=== PATIENT | female | born 1935 | race Caucasian/White ===

== ENCOUNTER 2021-08-12 15:02 | Outpatient (REF) | payer MEDICARE, SELFPAY ==
[2021-08-12 16:29] LABS: MANUAL DIFF FLAG NO
[2021-08-12 17:01] LABS: Basophils Absolute Auto 0.1 X10*3/uL (0.0-0.2); Basophils Percent Auto 0.5 % (0-2); Eosinophils Absolute Auto 0.3 X10*3/uL (0.0-0.4); Eosinophils Percent Auto 2.5 % (0-4); Hematocrit 41.2 % (37.0-47.0); Hemoglobin 13.1 g/dl (12.0-16.0); Imm Gran Abs Auto 0.05 X10*3/uL (0.00-0.03); Imm Gran Pct Auto 0.4 % (0.0-0.4); Lymphocytes Absolute Auto 2.8 X10*3/uL (1.2-4.9); Lymphocytes Percent Auto 22.6 % (20-40); Mean Corpuscular HGB Conc 31.8 g/dl (31.0-35.0); Mean Corpuscular Hemoglobin 30.5 pg (27.0-33.0); Mean Platelet Volume 10.6 fL (9.4-12.3); Monocytes Absolute Auto 1.4 X10*3/uL (0.1-1.2); Monocytes Percent Auto 11.4 % (2-11); Neutrophils Absolute Auto 7.8 x10*3/uL (2.0-8.3); Neutrophils Percent Auto 62.6 % (45-73); Platelet Count 234 X10*3/uL (160-400); Red Blood Count 4.29 X10*6/uL (4.20-5.50); Red Cell Distribution Width 14.5 % (11.0-16.0); White Blood Count 12.5 X10*3/uL (4.8-10.8)
[2021-08-12 17:13] LABS: D Dimer High Sensitivity 445 NG/ML
[2021-08-12 17:34] LABS: Anion Gap 9 (12-20); Blood Urea Nitrogen 28 mg/dL (9-16); Calcium 9.9 mg/dL (8.4-10.2); Carbon Dioxide 32 mmol/L (22-29); Chloride 109 mmol/L (96-108); Estimated Glomerular Filt Rate > 60; Glucose Random 122 mg/dL (60-115); Sodium 146 mmol/L (135-145)
[2021-08-12 17:37] LABS: Troponin-I High Sensitivity 6.5 ng/L (<3.5-17.0)
[2021-08-12 18:19] LABS: Erythrocyte Sedimentation Rate 21 MM/HR (0-20)
[2021-08-18 12:47] LABS: Alpha 1 Anti-trypsin 152 mg/dL (83-199)
[2021-09-05 08:41] LABS: SARS COV2 IgG Negative
== END 2021-08-12 15:03 | disposition home or self-care (01) ==
LOC: HO.LAB 15:02
PROVIDERS: PCP Internal Medicine; Visit Provider Hospitalist
DX: J44.9 Chronic obstructive pulmonary disease, unspecified (principal); R07.9 Chest pain, unspecified; R06.00 Dyspnea, unspecified; R09.02 Hypoxemia; T78.40XA Allergy, unspecified, initial encounter; Z01.84 Encounter for antibody response examination
CPT/HCPCS: 36415; 80048; 82103; 82785; 84484; 85025; 85379; 85652; 86003; 86769; 94618; 99202

== ENCOUNTER 2021-08-16 07:30 | Outpatient (REF) | payer MEDICARE, SELFPAY ==
--- NOTE | ~2021-08-16 | CT_ITS ---
EXAMINATION: CT ANGIOGRAM OF THE CHEST WITH AND WITHOUT CONTRAST (CT PULMONARY ANGIOGRAM FOR PE) CLINICAL INFORMATION: Reason for Exam R78.89 - Finding of other specified substances, not james... COMPARISON: None TECHNIQUE: Prior to contrast administration, noncontrast localization images were obtained. Subsequently, multidetector volumetric imaging was performed from the thoracic inlet to below the diaphragms following the administration of 65 mL Omnipaque 350 intravenous contrast. No contrast reaction reported Sagittal, coronal, and MIP oblique sagittal reformatted images were obtained on the CT workstation, uploaded to PACS, and reviewed. This CT examination was performed using dose optimization techniques as appropriate, variously including the following: *Automated exposure control *Adjustment of mA and/or kV according to patient size (this includes techniques or standardized protocols for targeted exams where dose is matched to indication/reason for exam; i.e. extremities or head) *Use of iterative reconstruction technique Total exam dose-length product 94 mGy-cm FINDINGS: QUALITY OF STUDY/CONTRAST BOLUS: Satisfactory. PULMONARY ARTERIES: No central or segmental pulmonary emboli. THORACIC AORTA: No aneurysm or dissection. LUNG: There is biapical pleural and parenchymal scarring. There are nodular opacities seen at both lung apices, left greater than right. Largest area measures 6 mm at the left lung apex. There is subsegmental atelectasis in the lingula. There is mild focal bronchiectasis and bronchial wall thickening and some bronchial soft tissue opacification in the right middle lobe. PLEURA: No pleural effusion or pneumothorax. MEDIASTINUM: There is a large right partially calcified thyroid nodule. This deviates the trachea slightly to the left. Heart size is normal. This measures at least 3 x 3 x 4 cm. There is mild coronary artery calcification. There is no pericardial effusion. The thoracic aorta is normal in caliber. There is shotty mediastinal lymphadenopathy. There are no enlarged hilar or mediastinal lymph nodes. CHEST WALL/AXILLA: No axillary or internal mammary lymphadenopathy. OSSEOUS STRUCTURES: No acute or suspicious osseous abnormality. There are degenerative changes of the spine. There is a L1 vertebral body compression fracture versus Schmorl's node. There is a sclerotic lesion in the right T10 pedicle. This measures approximately 1 cm. UPPER ABDOMEN: There are small splenules seen in the left upper quadrant. Normal-sized spleen is not seen. This uncertain whether this is posttraumatic or post splenectomy changes versus congenital finding. There are left renal cysts. No reflux of contrast into the hepatic veins to suggest elevated right heart pressures. CT/CT angio chest PE protocol IMPRESSION: No evidence of pulmonary embolism. Biapical pleural and parenchymal scarring. Bilateral apical nodular opacities. These are clustered may represent an infectious or inflammatory process. Mild airways disease in the right middle lobe. Subsegmental atelectasis or scarring in the inferior segment of the lingula. Enlarged right lobe of the thyroid gland and large right thyroid nodule that is partially calcified. According to size criteria, follow-up thyroid ultrasound recommended. VTE: negative
[2021-08-16] MEDS: iohexoL 350 MG/ML 100 ML INFUS..BTL IV (08:30)
== END 2021-08-16 07:31 | disposition home or self-care (01) ==
LOC: HO.CT 07:30
PROVIDERS: PCP Internal Medicine; Visit Provider Hospitalist
DX: R07.9 Chest pain, unspecified (principal); R09.02 Hypoxemia; R79.89 Other specified abnormal findings of blood chemistry
CPT/HCPCS: 71275; Q9967

== ENCOUNTER → 2021-09-23 12:40 | Outpatient (BNVA) | payer MEDICARE, SELFPAY | PROVIDERS: PCP Internal Medicine; Visit Provider Hospitalist | DX: R06.00 Dyspnea, unspecified (principal); R09.02 Hypoxemia; J44.9 Chronic obstructive pulmonary disease, unspecified; T78.40XA Allergy, unspecified, initial encounter; R91.8 Other nonspecific abnormal finding of lung field; Z79.899 Other long term (current) drug therapy | CPT/HCPCS: 99212 ==

== ENCOUNTER → 2022-01-26 12:48 | Outpatient (BNVA) | payer MEDICARE, SELFPAY | PROVIDERS: PCP Internal Medicine; Visit Provider Hospitalist | DX: R06.00 Dyspnea, unspecified (principal); R07.9 Chest pain, unspecified; T78.40XA Allergy, unspecified, initial encounter; R09.02 Hypoxemia; J44.9 Chronic obstructive pulmonary disease, unspecified; R91.8 Other nonspecific abnormal finding of lung field; G47.33 Obstructive sleep apnea (adult) (pediatric); Z99.81 Dependence on supplemental oxygen | CPT/HCPCS: 99212 ==

== ENCOUNTER → 2022-08-15 13:05 | Outpatient (BNVA) | payer MEDICARE, SELFPAY | PROVIDERS: PCP Student in an Organized Health Care Education/Training Program; Visit Provider Hospitalist | DX: J44.9 Chronic obstructive pulmonary disease, unspecified (principal); R09.02 Hypoxemia; R06.00 Dyspnea, unspecified; R91.8 Other nonspecific abnormal finding of lung field; G47.33 Obstructive sleep apnea (adult) (pediatric) | CPT/HCPCS: 99212 ==

== ENCOUNTER 2022-11-23 12:58 | Outpatient (AMB) | payer MEDICARE, SELFPAY ==
--- NOTE | 2022-11-23 13:03 | MHC.OFFVIS ---
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 Initially she also had issues with daytime drowsiness with an elevated Vienna score. She was referred to sleep medicine. She underwent a home sleep study demonstrating sleep apnea and also nocturnal hypoxia and ultimately underwent a titration study and was started on CPAP therapy along with oxygen. However she could not tolerate the CPAP and ultimately ended up continue to use the oxygen. She was then referred to Pulmonary. There she did have a 6 minute walk test and she indeed also had evidence of hypoxia with activity. She was started on oxygen with activity as well as nighttime. She did undergo pulmonary function studies which I personally reviewed with her which demonstrated an obstructive ventilatory defect consistent moderate COPD as well as a mild diffusion impairment. Still, the degree of hypoxia was out of proportion to the abnormal pulmonary function studies. Patient did undergo an echocardiogram looking for the possibility of pulmonary hypertension. However, the echocardiogram could not visualize the tricuspid valve well and could not estimate pulmonary pressures. that being said on the echocardiogram the right ventricular function and size appear to be noted. She also underwent a chest x-ray demonstrating hyperinflation of the lungs consistent with COPD. In addition to this the patient states that she was evaluated in the past for pulmonary nodules. At that time she did undergo a CT scan of the chest and ultimately a PET scan. After as brief follow-up the patient opted on not continuing to have further CT scans. During the office visit we did go for 6 minutes walk test the patient indeed desaturated down to 87% with activity and did require 2 L of oxygen. Will have her undergo blood work including a D-dimer to rule out thromboembolic disease. 09/23/2021 the patient is here for a pulmonary follow-up visit. She continues to have dyspnea on exertion. Moderate severity. She did undergo a CT scan of the chest in view of her positive D-dimer. We personally reviewed the CT scan together. No evidence of any pulmonary emboli. She does have nodular densities in addition to some chronic airway disease. She also has areas of atelectasis and scarring. Her pulmonary trunk appears to be reasonable in size. Currently she is using the oxygen although she does not like to use the oxygen. She is wondering about a portable oxygen concentrator. I did explain to her that that is a good option but that does not not take away the need for the concentrator for sleep. She is concerned about visiting family in traveling. explained to the patient that she can always call the company and they will deliver oxygen equipment to her vacation her family location. She is wondering if she has underlying COPD. We did review her pulmonary function studies that she had a [facility] confirming that she does have moderate COPD. Although, she does not have any significant emphysema on CT scan she has evidence of airways disease. 01/26/2022 the patient is here for a pulmonary follow-up visit. Overall she is doing well from a respiratory status. Pulmonary rehabilitation was very helpful. She has now completed it. She continues on her respiratory medications with good response. She also continues use the oxygen at nighttime at 3 L. This has been affecting beneficial. Sometimes she struggles with the fact that she needs to Use the oxygen. But she understands this is very helpful in beneficial for her. More recently she had an episode of aphasia while on the phone with a friend. By the time on her friend made to home his symptoms have subsided. Therefore she did not go to the emergency department. She did go to her primary care doctor. 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 This is all per report. She is now waiting her carotid Dopplers to be done. she is currently taking an aspirin. Overall she is doing well she has not had any more episodes. She will be following up with Neurology some. The patient does have a history of sleep apnea. She could not tolerate her CPAP. The oxygen is partially helpful. She is wondering about a mandibular device. I am in favor of a mandibular device although the patient likely will need a repeat sleep study in order to get it covered by insurance as she has failed CPAP. She can also consider an elastic mandibular device which to less expensive. She will continue with current respiratory regimen for now. 08/15/2022 the patient is here for a pulmonary follow-up visit. The patient feels fatigued and also complains of shortness of breath. [id number] severity. Also has a chronic cough. She did have a repeat CT scan of the chest that we personally reviewed. It appears that she has new nodular changes in areas of bronchiolitis typically in the upper lung zones and also in the mid lung zones. I personally reviewed the CT scan with her. Explained to her that some of the nodules are indeed new in appears to be progressive. Indeed this could be explained by smoldering infectious process just says non tuberculosis mycobacterial infections. The patient was given different options. One option would be to request sputum for AFB in culture. However this is difficult for her. The other option is to perform a bronchoscopy for deep cultures. The patient would like to hold off on any semi invasive or invasive procedures in view of her age in her elements. The other option is to try empiric macrolide therapy to treat her for mycobacterial disease. The patient is agreeable to this. She knows she needs to get an EKG once she starts therapy to make sure that it QT intervals okay. I did give her a request for an EKG. The patient will continue with current respiratory therapy. She is still using the oxygen to sleep. Will plan to follow-up in 3 months time to assess her symptoms. Will also have to repeat her CT scan to see if there is any interval improvement. Also to note the dose of the azithromycin is low so will continue to monitor her response to low-dose. May be that we need to increase the dose to a more therapeutic dose. 11/23/2022 the patient is here for pulmonary follow-up visit. She denies any significant coughing or chest congestion. Her major complaint is feeling tired and short of breath. [id number]-hg-gqggfxms severity. Based on the CT scan findings we opted on putting her on azithromycin 250 mg 3 times a week. This is because the findings on the CT scan are very suspicious for smoldering infection such as mycobacterium avium. The patient had been reluctant to get a bronchoscopy and she is not providing any sputum. Therefore, we decided to treat her empirically. We did recently repeat the CT scan of the chest demonstrating interval improvement in some of the pulmonary nodules and stability on the other findings. Again the findings are very suspicious for mycobacterial disease. In view of the improvement in the fact that he EKG was okay we can try increasing the azithromycin to the therapeutic dose of 500 mg Sunday. Will continue to follow her clinically and see if her symptoms improve. She is aware that smoldering infection such as with mycobacterial disease can results with the constitutional symptoms she is experiencing. The still, it is difficult to know for sure without a culture or deep cultures to determine the infectious process. The patient understands and is agreeable to continue empiric therapy based on the fact that she does not want any invasive her semi invasive procedures at this time. If she changes her mind we can always schedule for bronchoscopy. In the meantime I did send her medications the pharmacy. She also struggles with her [place]. The patient is willing to try trazodone that she can take along with her other medications. She will start with 1 tablet and then increase it accordingly to 2 tablets if needed. The patient will follow-up in 3-4 months. [facility] Medical History (Updated 01/26/22 @ 20:55 by Renaldo Pearson MD) Allergies Asthma-COPD overlap syndrome Chest pain Dyspnea Hypoxia MARISELA (obstructive sleep apnea) Pulmonary nodules Social History (Updated 08/12/21 @ 15:11 by URBAN Correa) Patient Tobacco Use Status: Never used Tobacco Review of Systems Const Denies daytime sleepiness, Reports fatigue and Reports snoring Eyes Denies change in vision ENT Denies change in voice Card Denies chest pain and Reports dyspnea on exertion Resp Reports cough, Reports dyspnea on exertion, Reports snoring and Denies wheezing GI Reports no additional complaints Musc Reports myalgias Skin/Breast Denies rash Neuro Reports as per HPI Endo Reports fatigue Aller/Immun Denies wheezing Physical Exam Vital Signs: Last Vital Signs Pulse 84 11/23/22 13:05 BP 128/70 11/23/22 13:05 Pulse Ox 96 11/23/22 13:05 Oxygen Delivery Method Room Air 11/23/22 13:05 BMI result Body Mass Index 25.7 Const General: alert Neck Neck: Yes normal visual inspection, Yes full ROM and Yes no lymphadenopathy Chest Chest palpation & inspection: normal inspection of the chest Resp Auscultation: diminished lung sounds Cardio Rate: regular rate Rhythm: regular rhythm Heart sounds: S1 normal heart sound present and S2 normal heart sound present GI Palpation (GI): Soft to palpation and nontender Auscultation: normal bowel sounds Skin General skin exam: rashes and/or lesions noted Assessment & Plan Assessment & Plan (1) Asthma-COPD overlap syndrome: Code(s): J44.9 - Chronic obstructive pulmonary disease, unspecified (2) Hypoxia: Code(s): R09.02 - Hypoxemia (3) Allergies: Code(s): T78.40XA - Allergy, unspecified, initial encounter (4) Dyspnea: Code(s): R06.00 - Dyspnea, unspecified (5) Pulmonary nodules: Code(s): R91.8 - Other nonspecific abnormal finding of lung field (6) MARISELA (obstructive sleep apnea): Code(s): G47.33 - Obstructive sleep apnea (adult) (pediatric) Plan continue Trelegy RED as needed Continue oxygen supplementation with activity and sleep increase Azithromycin 500mg MWF EKG start Trazodone F/U 3-4 months Medications: New trazodone 50 mg PO BEDTIME 30 days 30 tabs 11RF azithromycin M/W/F 500 mg PO 3XW 28 days 12 tabs 4RF Coding Level of Care Code Est Pt Level 4 (86331) Diagnoses Asthma-COPD overlap syndrome J44.9 Hypoxia R09.02 Allergies T78.40XA Dyspnea R06.00 Pulmonary nodules R91.8 MARISELA (obstructive sleep apnea) G47.33 Time Spent (min) 20
[2022-11-23 13:05] VITALS: BP 128/70; PULSE 84; O2SAT 96; BMI 25.7
== END 2022-11-23 13:34 | disposition home or self-care (01) ==
PROVIDERS: PCP Student in an Organized Health Care Education/Training Program; Visit Provider Hospitalist
DX: J44.9 Chronic obstructive pulmonary disease, unspecified (principal); R09.02 Hypoxemia; T78.40XA Allergy, unspecified, initial encounter; R06.00 Dyspnea, unspecified; R91.8 Other nonspecific abnormal finding of lung field; G47.33 Obstructive sleep apnea (adult) (pediatric)
CPT/HCPCS: 99214

== ENCOUNTER → 2022-11-23 12:58 | Outpatient (BNVA) | payer MEDICARE, SELFPAY | PROVIDERS: PCP Student in an Organized Health Care Education/Training Program; Visit Provider Hospitalist | DX: J44.9 Chronic obstructive pulmonary disease, unspecified (principal); R09.02 Hypoxemia; T78.40XA Allergy, unspecified, initial encounter; R06.00 Dyspnea, unspecified; R91.8 Other nonspecific abnormal finding of lung field; G47.33 Obstructive sleep apnea (adult) (pediatric); Z79.899 Other long term (current) drug therapy; Z99.81 Dependence on supplemental oxygen | CPT/HCPCS: 99212 ==

== ENCOUNTER 2023-03-23 12:58 | Outpatient (AMB) | payer MEDICARE, SELFPAY ==
[2023-03-23 13:04] VITALS: PULSE 89; O2SAT 93
--- NOTE | 2023-03-23 13:04 | MHC.OFFVIS ---
Intake Vital Signs 03/23/23 13:04 Height 5 ft 4 in BMI Reason not done Patient refused/unable Pulse 89 Pulse Source Pulse Oximeter Pulse Oximetry (%) 93 Oxygen Delivery Method Room Air Intake Visit Reasons: CT Chest Follow Up Christian Counselor Required: No Allergies Iodinated Contrast Media Adverse Reaction (Verified 03/23/23 13:06) Unknown losartan Adverse Reaction (Verified 03/23/23 13:06) Unknown Penicillins Adverse Reaction (Verified 03/23/23 13:06) Unknown Sulfa (Sulfonamide Antibiotics) Adverse Reaction (Verified 03/23/23 13:06) Unknown valsartan Adverse Reaction (Verified 03/23/23 13:06) Unknown HPI HPI Comments History of Present Illness Details The patient is an 87-year woman complaining of progressive dyspnea. Initially she also had issues with daytime drowsiness with an elevated [place] score. She was referred to sleep medicine. She underwent a home sleep study demonstrating sleep apnea and also nocturnal hypoxia and ultimately underwent a titration study and was started on CPAP therapy along with oxygen. However she could not tolerate the CPAP and ultimately ended up continue to use the oxygen. She was then referred to Pulmonary. There she did have a 6 minute walk test and she indeed also had evidence of hypoxia with activity. She was started on oxygen with activity as well as nighttime. She did undergo pulmonary function studies which I personally reviewed with her which demonstrated an obstructive ventilatory defect consistent moderate COPD as well as a mild diffusion impairment. Still, the degree of hypoxia was out of proportion to the abnormal pulmonary function studies. Patient did undergo an echocardiogram looking for the possibility of pulmonary hypertension. However, the echocardiogram could not visualize the tricuspid valve well and could not estimate pulmonary pressures. that being said on the echocardiogram the right ventricular function and size appear to be noted. She also underwent a chest x-ray demonstrating hyperinflation of the lungs consistent with COPD. In addition to this the patient states that she was evaluated in the past for pulmonary nodules. At that time she did undergo a CT scan of the chest and ultimately a PET scan. After as brief follow-up the patient opted on not continuing to have further CT scans. During the office visit we did go for 6 minutes walk test the patient indeed desaturated down to 87% with activity and did require 2 L of oxygen. Will have her undergo blood work including a D-dimer to rule out thromboembolic disease. 09/23/2021 the patient is here for a pulmonary follow-up visit. She continues to have dyspnea on exertion. Moderate severity. She did undergo a CT scan of the chest in view of her positive D-dimer. We personally reviewed the CT scan together. No evidence of any pulmonary emboli. She does have nodular densities in addition to some chronic airway disease. She also has areas of atelectasis and scarring. Her pulmonary trunk appears to be reasonable in size. Currently she is using the oxygen although she does not like to use the oxygen. She is wondering about a portable oxygen concentrator. I did explain to her that that is a good option but that does not not take away the need for the concentrator for sleep. She is concerned about visiting family in traveling. explained to the patient that she can always call the company and they will deliver oxygen equipment to her vacation her family location. She is wondering if she has underlying COPD. We did review her pulmonary function studies that she had a [facility] confirming that she does have moderate COPD. Although, she does not have any significant emphysema on CT scan she has evidence of airways disease. 01/26/2022 the patient is here for a pulmonary follow-up visit. Overall she is doing well from a respiratory status. Pulmonary rehabilitation was very helpful. She has now completed it. She continues on her respiratory medications with good response. She also continues use the oxygen at nighttime at 3 L. This has been affecting beneficial. Sometimes she struggles with the fact that she needs to Use the oxygen. But she understands this is very helpful in beneficial for her. More recently she had an episode of aphasia while on the phone with a friend. By the time on her friend made to home his symptoms have subsided. Therefore she did not go to the emergency department. She did go to her primary care doctor. 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 This is all per report. She is now waiting her carotid Dopplers to be done. she is currently taking an aspirin. Overall she is doing well she has not had any more episodes. She will be following up with Neurology some. The patient does have a history of sleep apnea. She could not tolerate her CPAP. The oxygen is partially helpful. She is wondering about a mandibular device. I am in favor of a mandibular device although the patient likely will need a repeat sleep study in order to get it covered by insurance as she has failed CPAP. She can also consider an elastic mandibular device which to less expensive. She will continue with current respiratory regimen for now. 08/15/2022 the patient is here for a pulmonary follow-up visit. The patient feels fatigued and also complains of shortness of breath. Egsy-ju-dtzapcef severity. Also has a chronic cough. She did have a repeat CT scan of the chest that we personally reviewed. It appears that she has new nodular changes in areas of bronchiolitis typically in the upper lung zones and also in the mid lung zones. I personally reviewed the CT scan with her. Explained to her that some of the nodules are indeed new in appears to be progressive. Indeed this could be explained by smoldering infectious process just says non tuberculosis mycobacterial infections. The patient was given different options. One option would be to request sputum for AFB in culture. However this is difficult for her. The other option is to perform a bronchoscopy for deep cultures. The patient would like to hold off on any semi invasive or invasive procedures in view of her age in her elements. The other option is to try empiric macrolide therapy to treat her for mycobacterial disease. The patient is agreeable to this. She knows she needs to get an EKG once she starts therapy to make sure that it QT intervals okay. I did give her a request for an EKG. The patient will continue with current respiratory therapy. She is still using the oxygen to sleep. Will plan to follow-up in 3 months time to assess her symptoms. Will also have to repeat her CT scan to see if there is any interval improvement. Also to note the dose of the azithromycin is low so will continue to monitor her response to low-dose. May be that we need to increase the dose to a more therapeutic dose. 11/23/2022 the patient is here for pulmonary follow-up visit. She denies any significant coughing or chest congestion. Her major complaint is feeling tired and short of breath. Wqgk-mx-cwaswncp severity. Based on the CT scan findings we opted on putting her on azithromycin 250 mg 3 times a week. This is because the findings on the CT scan are very suspicious for smoldering infection such as mycobacterium avium. The patient had been reluctant to get a bronchoscopy and she is not providing any sputum. Therefore, we decided to treat her empirically. We did recently repeat the CT scan of the chest demonstrating interval improvement in some of the pulmonary nodules and stability on the other findings. Again the findings are very suspicious for mycobacterial disease. In view of the improvement in the fact that he EKG was okay we can try increasing the azithromycin to the therapeutic dose of 500 mg Sunday. Will continue to follow her clinically and see if her symptoms improve. She is aware that smoldering infection such as with mycobacterial disease can results with the constitutional symptoms she is experiencing. The still, it is difficult to know for sure without a culture or deep cultures to determine the infectious process. The patient understands and is agreeable to continue empiric therapy based on the fact that she does not want any invasive her semi invasive procedures at this time. If she changes her mind we can always schedule for bronchoscopy. In the meantime I did send her medications the pharmacy. She also struggles with her [place]. The patient is willing to try trazodone that she can take along with her other medications. She will start with 1 tablet and then increase it accordingly to 2 tablets if needed. The patient will follow-up in 3-4 months. 03/23/2023 the patient is here for pulmonary follow-up visit. Her major complaint is feeling tired and short of breath. Vakq-dk-voihupof severity. Based on the CT scan findings we increased her azithromycin 500 mg 3 times a week. This is because the findings on the CT scan are very suspicious for smoldering infection such as mycobacterium avium. The patient had been reluctant to get a bronchoscopy and she is not providing any sputum. Therefore, we decided to treat her empirically. We did recently repeat the CT scan of the chest demonstrating interval improvement in some of the pulmonary nodules and stability on the other findings. Again the findings are very suspicious for mycobacterial disease. Will continue to follow her clinically and see if her symptoms improve. She is aware that smoldering infection such as with mycobacterial disease can results with the constitutional symptoms she is experiencing. The still, it is difficult to know for sure without a culture or deep cultures to determine the infectious process. The patient understands and is agreeable to continue empiric therapy based on the fact that she does not want any invasive her semi invasive procedures at this time. She has been using the Trelegy, although, it is very expensive. We will trial her on Airduo with the Superbly card. We will f/u after her repeat CT chest in 3-[address] [facility] Medical History (Updated 03/23/23 @ 13:22 by Renaldo Pearson MD) MARISELA (obstructive sleep apnea) Pulmonary nodules Asthma-COPD overlap syndrome Hypoxia Allergies Chest pain Dyspnea Social History (Updated 08/12/21 @ 15:11 by Kia Murphy Louise) Patient Tobacco Use Status: Never used Tobacco Review of Systems Const Denies daytime sleepiness, Reports fatigue and Reports snoring Eyes Denies change in vision ENT Denies change in voice Card Denies chest pain and Reports dyspnea on exertion Resp Reports cough, Reports dyspnea on exertion, Reports snoring and Denies wheezing GI Reports no additional complaints Musc Reports myalgias Skin/Breast Denies rash Neuro Reports as per HPI Endo Reports fatigue Aller/Immun Denies wheezing Physical Exam Vital Signs: Last Vital Signs Pulse 89 03/23/23 13:04 Pulse Ox 93 03/23/23 13:04 Oxygen Delivery Method Room Air 03/23/23 13:04 Const General: alert Neck Neck: Yes normal visual inspection, Yes full ROM and Yes no lymphadenopathy Chest Chest palpation & inspection: normal inspection of the chest Resp Auscultation: diminished lung sounds Cardio Rate: regular rate Rhythm: regular rhythm Heart sounds: S1 normal heart sound present and S2 normal heart sound present GI Palpation (GI): Soft to palpation and nontender Auscultation: normal bowel sounds Skin General skin exam: rashes and/or lesions noted Assessment & Plan Assessment & Plan (1) Asthma-COPD overlap syndrome: Code(s): J44.9 - Chronic obstructive pulmonary disease, unspecified (2) Hypoxia: Code(s): R09.02 - Hypoxemia (3) Allergies: Code(s): T78.40XA - Allergy, unspecified, initial encounter Qualifiers: Encounter type: sequela Qualified Code(s): T78.40XS - Allergy, unspecified, sequela (4) Dyspnea: Code(s): R06.00 - Dyspnea, unspecified Qualifiers: Dyspnea type: dyspnea on exertion Qualified Code(s): R06.09 - Other forms of dyspnea (5) Pulmonary nodules: Code(s): R91.8 - Other nonspecific abnormal finding of lung field (6) MARISELA (obstructive sleep apnea): Code(s): G47.33 - Obstructive sleep apnea (adult) (pediatric) Plan stop Trelegy start Airduo (GoodRx) Lasix x 3 days RED as needed Continue oxygen supplementation with activity and sleep continue Azithromycin 500mg MWF stopped Trazodone F/U 3-4 months Orders: Orders CT chest wo IV con 3 Months R91.8 - Other nonspecific abnormal finding of lung field Medications: New furosemide (Lasix) 20 mg PO DAILY 3 days 3 tabs 0RF fluticasone propion-salmeterol 113-14 mcg/actuation (AirDuo RespiClick) 1 inh inhalation BID 1 ea 12RF fluticasone propion-salmeterol 113-14 mcg/actuation (AirDuo RespiClick) 1 inh inhalation BID 30 days 1 ea 12RF fluticasone propion-salmeterol 113-14 mcg/actuation (AirDuo RespiClick) 1 inh inhalation BID 30 days 1 ea 12RF Coding Level of Care Code Est Pt Level 4 (47350) Diagnoses Asthma-COPD overlap syndrome J44.9 Hypoxia R09.02 Allergy, sequela T78.40XS Encounter type: sequela Dyspnea on exertion R06.09 Dyspnea type: dyspnea on exertion Pulmonary nodules R91.8 MARISELA (obstructive sleep apnea) G47.33 Time Spent (min) 19
== END 2023-03-23 13:42 | disposition home or self-care (01) ==
PROVIDERS: PCP Student in an Organized Health Care Education/Training Program; Visit Provider Hospitalist
DX: J44.9 Chronic obstructive pulmonary disease, unspecified (principal); R09.02 Hypoxemia; T78.40XS Allergy, unspecified, sequela; R06.09 Other forms of dyspnea; R91.8 Other nonspecific abnormal finding of lung field; G47.33 Obstructive sleep apnea (adult) (pediatric)
CPT/HCPCS: 99214

== ENCOUNTER → 2023-03-23 12:58 | Outpatient (BNVA) | payer MEDICARE, SELFPAY | PROVIDERS: PCP Student in an Organized Health Care Education/Training Program; Visit Provider Hospitalist | DX: J44.9 Chronic obstructive pulmonary disease, unspecified (principal); R09.02 Hypoxemia; T78.40XS Allergy, unspecified, sequela; R06.09 Other forms of dyspnea; R91.8 Other nonspecific abnormal finding of lung field; G47.33 Obstructive sleep apnea (adult) (pediatric) | CPT/HCPCS: 99212 ==

== ENCOUNTER 2023-07-02 13:02 | Outpatient (AMB) | payer MEDICARE, SELFPAY ==
[2023-07-02 13:15] VITALS: PULSE 72; O2SAT 94; BMI 25.7
--- NOTE | 2023-07-02 13:15 | A.OFFVIS_ITS ---
Intake Vital Signs 07/02/23 13:15 Height 5 ft 4 in Weight 149 lb 14.629 oz BMI 25.7 Pulse 72 Pulse Source Pulse Oximeter Pulse Oximetry (%) 94 Oxygen Delivery Method Room Air Intake Visit Reasons: CT Chest Follow Up [employer] Development Head Required: No Allergies Iodinated Contrast Media Adverse Reaction (Verified 07/02/23 13:16) Unknown losartan Adverse Reaction (Verified 07/02/23 13:16) Unknown Penicillins Adverse Reaction (Verified 07/02/23 13:16) Unknown Sulfa (Sulfonamide Antibiotics) Adverse Reaction (Verified 07/02/23 13:16) Unknown valsartan Adverse Reaction (Verified 07/02/23 13:16) Unknown HPI HPI Comments History of Present Illness Details The patient is an 88-year woman complaining of progressive dyspnea. Initially she also had issues with daytime drowsiness with an elevated Lagrange score. She was referred to sleep medicine. She underwent a home sleep study demonstrating sleep apnea and also nocturnal hypoxia and ultimately underwent a titration study and was started on CPAP therapy along with oxygen. However she could not tolerate the CPAP and ultimately ended up continue to use the oxygen. She was then referred to Pulmonary. There she did have a 6 minute walk test and she indeed also had evidence of hypoxia with activity. She was started on oxygen with activity as well as nighttime. She did undergo pulmonary function studies which I personally reviewed with her which demonstrated an obstructive ventilatory defect consistent moderate COPD as well as a mild diffusion impairment. Still, the degree of hypoxia was out of proportion to the abnormal pulmonary function studies. Patient did undergo an echocardiogram looking for the possibility of pulmonary hypertension. However, the echocardiogram could not visualize the tricuspid valve well and could not estimate pulmonary pressures. that being said on the echocardiogram the right ventricular function and size appear to be noted. She also underwent a chest x-ray demonstrating hyperinflation of the lungs consistent with COPD. In addition to this the patient states that she was evaluated in the past for pulmonary nodules. At that time she did undergo a CT scan of the chest and ultimately a PET scan. After as brief follow-up the patient opted on not continuing to have further CT scans. During the office visit we did go for 6 minutes walk test the patient indeed desaturated down to 87% with activity and did require 2 L of oxygen. Will have her undergo blood work including a D-dimer to rule out thromboembolic disease. 09/23/2021 the patient is here for a pulmo nary follow-up visit. She continues to have dyspnea on exertion. Moderate severity. She did undergo a CT scan of the chest in view of her positive D-dimer. We personally reviewed the CT scan together. No evidence of any pulmonary emboli. She does have nodular densities in addition to some chronic airway disease. She also has areas of atelectasis and scarring. Her pulmonary trunk appears to be reasonable in size. Currently she is using the oxygen although she does not like to use the oxygen. She is wo ndering about a portable oxygen concentrator. I did explain to her that that is a good option but that does not not take away the need for the concentrator for sleep. She is concerned about visiting family in traveling. explained to the patient that she can always call the company and they will deliver oxygen equipment to her vacation her family location. She is wondering if she has underlying COPD. We did review her pulmonary function studies that she had a [facility] confirming that she does have moderate COPD. Although, she does not have any significant emphysema on CT scan she has evidence of airways disease. 01/26/2022 the patient is here for a pulmonary follow-up visit. Overall she is doing well from a respiratory status. Pulmonary rehabilitation was very helpful. She has now completed it. She continues on her respiratory medications with good response. She also continues use the oxygen at nighttime at 3 L. This has been affecting beneficial. Sometimes she struggles with the fact that she needs to Use the oxygen. But she understands this is very helpful in beneficial for her. More recently she had an episode of aphasia while on the phone with a friend. By the time on her friend made to home his symptoms have subsided. Therefore she did not go to the emergency department. She did go to her primary care doctor. 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 This is all per report. She is now waiting her carotid Dopplers to be done. she is currently taking an aspirin. Overall she is doing well she has not had any more episodes. She will be following up with Neurology some. The patient does have a history of sleep apnea. She could not tolerate her CPAP. The oxygen is partially helpful. She is wondering about a mandibular device. I am in favor of a mandibular device although the patient likely will need a repeat sleep study in order to get it covered by insurance as she has failed CPAP. She can also consider an elastic mandibular device which to less expensive. She will continue with current respiratory regimen for now. 08/15/2022 the patient is here for a pulmonary follow-up visit. The patient feels fatigued and also complains of shortness of breath. Kqmd-zg-djzynual severity. Also has a chronic cough. She did have a repeat CT scan of the chest that we personally reviewed. It appears that she has new nodular changes in areas of bronchiolitis typically in the upper lung zones and also in the mid lung zones. I personally reviewed the CT scan with her. Explained to her that some of the nodules are indeed new in appears to be progressive. Indeed this could be explained by smoldering infectious process just says non tuberculosis mycobacterial infections. The patient was given different options. One option would be to request sputum for AFB in culture. However this is difficult for her. The other option is to perform a bronchoscopy for deep cultures. The patient would like to hold off on any semi invasive or invasive procedures in view of her age in her elements. The other option is to try empiric macrolide therapy to treat her for mycobacterial disease. The patient is agreeable to this. She knows she needs to get an EKG once she starts therapy to make sure that it QT intervals okay. I did give her a request for an EKG. The patient will continue with current respiratory therapy. She is still using the oxygen to sleep. Will plan to follow-up in 3 months time to assess her symptoms. Will also have to repeat her CT scan to see if there is any interval improvement. Also to note the dose of the azithromycin is low so will continue to monitor her response to low-dose. May be that we need to increase the dose to a more therapeutic dose. 11/23/2022 the patient is here for pulmonary follow-up visit. She denies any significant coughing or chest congestion. Her major complaint is feeling tired and short of breath. Tico-hi-ouyaklxz severity. Based on the CT scan findings we opted on putting her on azithromycin 250 mg 3 times a week. This is because the findings on the CT scan are very suspicious for smoldering infection such as mycobacterium avium. The patient had been reluctant to get a bronchoscopy and she is not providing any sputum. Therefore, we decided to treat her empirically. We did recently repeat the CT scan of the chest demonstrating inte rval improvement in some of the pulmonary nodules and stability on the other findings. Again the findings are very suspicious for mycobacterial disease. In view of the improvement in the fact that he EKG was okay we can try increasing the azithromycin to the therapeutic dose of 500 mg Sunday. Will continue to follow her clinically and see if her symptoms improve. She is aware that smoldering infection such as with mycobacterial disease can results with the constitutional symptoms she is experiencing. The still, it is difficult to know for sure without a culture or deep cultures to determine the infectious process. The patient understands and is agreeable to continue empiric therapy based on the fact that she does not want any invasive her semi invasive procedures at this time. If she changes her mind we can always schedule for bronchoscopy. In the meantime I did send her medications the pharmacy. She also struggles with her [place]. The patient is willing to try trazodone that she can take along with her other medications. She will start with 1 tablet and then increase it accordingly to 2 tablets if needed. The patient will follow-up in 3-4 months. 03/23/2023 the patient is here for pulm onary follow-up visit. Her major complaint is feeling tired and short of breath. Eyoe-ql-bzgaqkkj severity. Based on the CT scan findings we increased her azithromycin 500 mg 3 times a week. This is because the findings on the CT scan are very suspicious for smoldering infection such as mycobacterium avium. The patient had been reluctant to get a bronchoscopy and she is not providing any sputum. Therefore, we decided to treat her empirically. We did recently repeat the CT scan of the chest demonstrating interval improvement in some of the pulmonary nodules and stability on the other findings. Again the findings are very suspicious for mycobacterial disease. Will continue to follow her clinically and see if her symptoms improve. She is aware that smoldering infection such as with mycobacterial disease can results with the constitutional symptoms she is experiencing. The still, it is difficult to know for sure without a culture or deep cultures to determine the infectious process. The patient understands and is agreeable to continue empiric therapy based on the fact that she does not want any invasive her semi invasive procedures at this time. She has been using the Trelegy, although, it is very expensive. We will trial her on Airduo with the goodRx card. We will f/u after her repeat CT chest in 3-4 months. 07/02/2023 the patient is here for a pulmonary follow-up visit. Overall she feels about the same. She still complains of dyspnea on exertion. That is her major complaint. At the same time she understands that is not so much shortness of breath but also fatigue the keeps her from be able to ambulate. Again we did a brief walking oximetry in the office and she was able to maintain a pulse ox of 95% and heart rate was stable. Although today she felt good. She does state that is probably too because she has company today and sometimes she is by herself and she gets somewhat depressed. For that reason she is moving closer to her daughter in the next few weeks. Therefore this may be her last visit. She has been on the azithromycin 3 times a week. She did have a repeat CT scan of the chest still demonstrating the waxing waning pulmonary nodules and tree-in-bud primarily involving the right middle lobe in the lingula which is very suggestive of a mycobacterial infection such as nontuberculous mycobacteri al disease. However she has been on the azithromycin for some time she denies any chest congestion and at the post point the risk of staying on the medicine outweigh the benefits. Therefore will stop the azithromycin at this time. She still struggles with her sleep. We did try trazodone during the last visit. She has tried multiple other sleep aids without any significant improvement. She is willing to try gabapentin. Will start her small dose of 100 mg and she can use it along with her Ativan. Will may have to increase the medications slowly to the therapeutic dose. [facility] Medical History (Updated 03/23/23 @ 13:22 by Renaldo Pearson MD) MARISELA (obstructive sleep apnea) Pulmonary nodules Asthma-COPD overlap syndrome Hypoxia Allergies Chest pain Dyspnea Social History (Updated 08/12/21 @ 15:11 by URBAN Correa) Patient Tobacco Use Status: Never used Tobacco Review of Systems Const Reports daytime sleepiness, Reports difficulty sleeping, Reports fatigue and Reports snoring Eyes Denies change in vision ENT Denies change in voice Card Denies chest pain and Reports dyspnea on exertion Resp Denies chest congestion, Reports cough, Reports dyspnea on exertion, Reports snoring and Denies wheezing GI Reports no additional complaints Musc Reports myalgias Skin/Breast Denies rash Neuro Reports as per HPI Endo Reports fatigue Aller/Immun Denies wheezing Physical Exam Vital Signs: Last Vital Signs Pulse 72 07/02/23 13:15 Pulse Ox 94 07/02/23 13:15 Oxygen Delivery Method Room Air 07/02/23 13:15 BMI result Body Mass Index 25.7 Const General: alert Neck Neck: Yes normal visual inspection, Yes full ROM and Yes no lymphadenopathy Chest Chest palpation & inspection: normal inspection of the chest Resp Effort & Inspection: normal respiratory effort Auscultation: diminished lung sounds Cardio Rate: regular rate Rhythm: regular rhythm Heart sounds: S1 normal heart sound present and S2 normal heart sound present GI Palpation (GI): Soft to palpation and nontender Auscultation: normal bowel sounds Skin General skin exam: no rashes or lesions noted Extrem General: No clubbing, No cyanosis and Yes edema Assessment & Plan Assessment & Plan (1) Asthma-COPD overlap syndrome: Code(s): J44.9 - Chronic obstructive pulmonary disease, unspecified (2) Hypoxia: Code(s): R09.02 - Hypoxemia (3) Allergies: Code(s): T78.40XA - Allergy, unspecified, initial encounter Qualifiers: Encounter type: sequela Qualified Code(s): T78.40XS - Allergy, unspecified, sequela (4) Dyspnea: Code(s): R06.00 - Dyspnea, unspecified Qualifiers: Dyspnea type: dyspnea on exertion Qualified Code(s): R06.09 - Other forms of dyspnea (5) Pulmonary nodules: Code(s): R91.8 - Other nonspecific abnormal finding of lung field (6) MARISELA (obstructive sleep apnea): Code(s): G47.33 - Obstructive sleep apnea (adult) (pediatric) Plan continue Airduo (GoodRx) daily RED as needed Continue oxygen supplementation with sleep, does not need it with activity stop Azithromycin 500mg MWF stopped Trazodone start [id number] for sleep Once she is established with her new providers, she should call to request records F/U 3-4 months or as needed Medications: New gabapentin 100 mg PO BEDTIME 30 caps 11RF 30 days Coding Level of Care Code Est Pt Level 4 (90095) Diagnoses Asthma-COPD overlap syndrome J44.9 Hypoxia R09.02 Allergy, sequela T78.40XS Encounter type: sequela Dyspnea on exertion R06.09 Dyspnea type: dyspnea on exertion Pulmonary nodules R91.8 MARISELA (obstructive sleep apnea) G47.33 Time Spent (min) 18
== END 2023-07-02 13:36 | disposition home or self-care (01) ==
PROVIDERS: PCP Student in an Organized Health Care Education/Training Program; Visit Provider Hospitalist
DX: J44.9 Chronic obstructive pulmonary disease, unspecified (principal); R09.02 Hypoxemia; T78.40XS Allergy, unspecified, sequela; R06.09 Other forms of dyspnea; R91.8 Other nonspecific abnormal finding of lung field; G47.33 Obstructive sleep apnea (adult) (pediatric)
CPT/HCPCS: 99214

== ENCOUNTER → 2023-07-02 13:02 | Outpatient (BNVA) | payer MEDICARE, SELFPAY | PROVIDERS: PCP Student in an Organized Health Care Education/Training Program; Visit Provider Hospitalist | DX: R09.02 Hypoxemia (principal); J44.9 Chronic obstructive pulmonary disease, unspecified; G47.33 Obstructive sleep apnea (adult) (pediatric); R91.8 Other nonspecific abnormal finding of lung field; R06.09 Other forms of dyspnea; T78.40XS Allergy, unspecified, sequela; Z99.89 Dependence on other enabling machines and devices; Z99.81 Dependence on supplemental oxygen | CPT/HCPCS: 99212 ==